=== PATIENT | female | born 1990 | race Two or more races ===

== ENCOUNTER 2025-03-13 10:30 | Day surgery (SDC) | payer MEDICAID, SELFPAY ==
[2025-03-12 08:56] VITALS: BMI 35.5
[2025-03-12 09:46] LABS: Basophils % (Auto) 0 % (0-2.5); Eosinophils # (Auto) 0.2 Thou/mm3 (0.0-0.5); Eosinophils % (Auto) 2 % (0-10); Hematocrit 39.4 % (36.0-46.0); Hemoglobin 13.1 g/dL (12.0-16.0); Immature Granulocytes % (Auto) 0 % (0-0); Immature Granulocytes Auto 0.02 Thou/mm3 (0.00-0.00); Lymphocytes # (Auto) 1.8 Thou/mm3 (1.0-4.8); Lymphocytes % (Auto) 23 % (10-50); Mean Corpuscular HGB Conc 33.2 g/dl (31.0-37.0); Mean Corpuscular Hemoglobin 29.4 pg (25.0-35.0); Mean Corpuscular Volume 89 fL (80-100); Monocytes # (Auto) 0.5 Thou/mm3 (0.0-0.8); Monocytes % (Auto) 6 % (0-12); Neutrophils # (Auto) 5.3 Thou/mm3 (1.8-7.7); Neutrophils % (Auto) 68 % (37-80); Nucleated Red Blood Cell % 0 /100 WBC (0); Platelet Count 216 Thou/mm3 (140-440); RDW Standard Deviation 42.5 fL (36.4-46.3); Red Blood Count 4.45 Miln/mm3 (4.00-5.20); White Blood Count 7.7 Thou/mm3 (3.6-11.0)
[2025-03-12 10:03] LABS: HCG,Qualitative Serum Negative
[2025-03-12 10:13] LABS: Alanine Aminotransferase 53 U/L (10-49); Albumin, Serum 4.1 gm/dL (3.5-5.0); Albumin/Globulin Ratio 1.8 (1.2-2.2); Alkaline Phosphatase 71 U/L (46-116); Anion Gap 8 (7-16); Aspartate Amino Transferase 28 U/L (0-34); BUN/Creatinine Ratio 22 Ratio (12-20); Bilirubin,Total 0.3 mg/dL (0.3-1.2); Blood Urea Nitrogen 11 mg/dL (9-23); Calcium 8.8 mg/dL (8.3-10.6); Calcium (Corrected) 8.8 mg/dL (8.5-10.1); Carbon Dioxide 27.5 mMol/L (20.0-31.0); Chloride 108 mMol/L (98-107); Creatinine (Component) 0.5 mg/dL (0.6-1.3); Estimated Creatinine Clearance 174.5 mL/min (>60); Globulin 2.3 gm/dL (2.3-3.5); Glucose 96 mg/dL (74-106); Osmolality,Calculated 284 (275-295); Sodium 143 mMol/L (136-145); Total Protein 6.4 gm/dL (5.7-8.2); eGFR > 60 See Note
[2025-03-12 10:47] LABS: Hepatitis A Antibody IgM Non Reactive (Non React); Hepatitis B Core Antibody IgM Non Reactive (Non React); Hepatitis B Surface Antigen Non Reactive (Non React); Hepatitis C Antibody Non Reactive (Non React)
[2025-03-12 14:11] LABS: HIV (1&2) Antibody Rapid Non-Reactive
[2025-03-13] VITALS (9 sets, daily range): BP systolic 91–144; BP diastolic 58–77; PULSE 56–75; RESP 12–20; TEMP 36.2–36.3; O2SAT 87–99; BMI 35.8
--- NOTE | 2025-03-13 10:58 | PD.GYNHP ---
Documentation for date of: 03/13/25 SOLUTION MANAGER - HPI History of Present Illness History of present illness: Ms. LUI is a 34 year old female para 3 admitted for laparoscopic bilateral salpingectomy. Patient had 1 and 2 vaginal deliveries. The was for malpresentation of twin and was done last year. Is on a weight loss medication. Denies any other surgical history. Denies any other medical history Meds Home Medications and Allergies Home Medications ?Medication ?Instructions ?Recorded ?Confirmed ?Type tirzepatide (weight loss) 2.5 2.5 mg subcut QWEEK 03/12/25 03/12/25 History mg/0.5 mL subcutaneous pen injector (Zepbound) Allergies Allergy/AdvReac Type Severity Reaction Status Date / Time hydrocodone Allergy Mild Rash Verified 03/12/25 08:54 Exam - SOLUTION MANAGER Constitutional Constitutional: no acute distress Routine HEENT Exam Head: Present normocephalic and atraumatic Eye: Present EOMI and PERRL ENT: Present mucous membranes moist Routine Neck Exam Neck: Present supple and trachea midline Routine Respiratory Exam Respiratory: Present chest non-tender, lungs clear, normal breath sounds and no resp distress Routine Cardiovascular Exam Cardiovascular: Present RRR Routine Abdominal Exam Abdominal: Present soft and normoactive bowel sounds Routine Extremities Exam Extremities: Present full ROM Routine Skin Exam Skin: Present intact and dry Routine Neurological Exam Neurological: Present alert, oriented X3 and CN II-XII intact Routine Psychiatric Exam Psychiatric: Present normal affect and normal thought process SOLUTION MANAGER - Results Labs 03/12/25 09:28 03/12/25 09:28 Impressions Impression: 34-year-old para 3 admitted for laparoscopic bilateral salpingectomy Aware of other reversible contraception however declines to use them Had a twin gestation and a Understands the risk of infection, bleeding, injury to neighboring organs like bowel and bladder Assessment and Plan Additional Assessment & Plan Additional Plan: Laparoscopic bilateral salpingectomy No antibiotic prophylaxis needed Quality Measures Quality Measures VTE prophylaxis
[2025-03-13] MEDS: RINGERS LACTATED 1000 ML 1,000 ML 20 ML IV (11:28)
--- NOTE | 2025-03-13 13:18 | SUR.PHASEI ---
1318: Pt. arrived with oral airway in place, vitals stable, breathing unlabored, no signs of distress, x4 dermabond sites to ABD CDI, no active bleed noted, report received from MD Sauer and Dimple GARG.
[2025-03-13] MEDS: ONDANSETRON INJ 2 MG/ML INJ 2 ML 4 MG IVP (14:04)
[2025-03-13] MEDS: fentaNYL CIT INJ 50 mCg/ML AMP 2ML 25 MCG IVP (14:19)
--- NOTE | 2025-03-13 14:30 | SUR.PHASEII ---
1430: Pt. AAOx4, vitals stable, breathing unlabored, no complaint of pain or nausea, x4 dermabond sites to ABD CDI, no active bleed noted, pt. tolerated sips of water well, pt. ambulated to wheelchair with steady gait and no assist, no complications. Gave discharge instructions to the pt. and her ride, both verbalized understanding and had no further questions. Pt. left with all personal belongings.
--- NOTE | 2025-03-20 08:05 | ESOP_ITS ---
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 General anesthesia was given without any complications.? A time out was given confirming Mike Harrell was undergoing the following, procedure,allergies, and surgeon.The patient was positioned in the dorsal lithotomy position. The bladder was emptied. The perineum was prepped with Betadine solution per routine.The abdomen was prepped with DuraPrep.Attention was then focused to the vagina.? A sponge placed in a ring forceps was placed in the posterior fornix and used as a uterine manipulator.? The surgeon then changed gloves to continue proper sterile technique. Attention was diverted to the abdomen. An umblical incision was first made, Two towel clips were placed lateral to the umbilicus in order to elevate the abdominal wall.? A hemostat was used to assess the depth to the fascia. While applying countertraction by lifting the towel clips, a Veress needle was used to enter the peritoneal cavity, a initial abdominal pressure of 12 mmHg was noted upon entry. Veress needle used for initial pneumoperitoneum establishment. 5 mm port used for the direct trocar entry the abdomen was then insufflated with CO2 gas to 15mmHg, under the opti-view system was advanced into the peritoneal entry.? The rt lower quadrant was evaluated and a 5-mm incision was made . 5-mm trocar placed under camera surveillance.? Left side evaluated and a 5mm trocar inserted under optiview surveillance. On observation: Normal anatomy with bilateral ovaries and tubes no peritoneal pathology identified. Using a laparoscopic [place] grasper, gently right tube at the fimbrial end was picked up. Gradually , her right and left tube was from the mesosalpinx using Enseal device. Same repeated on the other side bilateral salpingectomy done, hemostasis ensured. All the bowel at the initial trocar entry point was examined no entry injuries were noted Estimated blood loss (ml): 10 Surgical staff Operation Date: 03/13/25 13:00 Case Staff Anesthesiologist: Shahzad Sauer RN First Assistant: Nicole Mohan Diagnosis Problem List Completed Was Problem List Reviewed/Reconciled?: Yes
== END 2025-03-13 14:40 | disposition home or self-care (01) ==
PROVIDERS: PCP Family Medicine; Referring Provider Student in an Organized Health Care Education/Training Program; Visit Provider Student in an Organized Health Care Education/Training Program
PROC: (CPT 58720; principal; 2025-03-13 12:45)
DX: Z30.2 Encounter for sterilization (principal)
CPT/HCPCS: 58661; 36415; 80053; 80074; 84703; 85025; 86703; 86803; 86850; 86900; 86901; A4217; A4649; J0131; J1100; J1885; J2250; J2405; J2704; J3010; J3490; J7120